=== PATIENT | male | born 1980 | race Caucasian/White ===

== ENCOUNTER 2019-10-09 21:02 | Emergency (ER) | payer MEDICAID, OTHER ==
--- NOTE | 2019-10-09 21:29 | EDM.PDOC ---
ED HPI GENERAL MEDICAL PROBLEM - General Chief Complaint: Lower Extremity Injury/Pain Stated Complaint: RT BIG TOE POSSIBLY BROKEN Time Seen by Provider: 10/09/19 21:15 Source of Information: Reports: Patient History Limitations: Reports: No Limitations - History of Present Illness INITIAL COMMENTS - FREE TEXT/NARRATIVE: 39 yo male stumbled going down some stairs and his R great toe was in full flexion and got forced into hyperflexion. Has some limited bleeding before arrival and some pain. Onset: Today Onset Date: 10/09/19 Onset Time: 20:40 Duration: Minutes: Location: Reports: Lower Extremity, Right Quality: Reports: Dull Severity: Mild Improves with: Reports: Rest Worsens with: Reports: Movement Context: Reports: Trauma Associated Symptoms: Reports: No Other Symptoms Treatments TERMITE TREATER: Reports: Other (see below) (none) right toe Pain Score (Numeric/FACES): 6 - Related Data Allergies Allergy/AdvReac Type Severity Reaction Status Date / Time No Known Allergies Allergy Verified 10/09/19 21:17 Home Meds: Home Meds Vortioxetine Hydrobromide [Trintellix] 20 mg PO DAILY 10/09/19 [History] Past Medical History HEENT History: Reports: Impaired Vision Musculoskeletal History: Reports: Fracture Psychiatric History: Reports: Anxiety, Depression - Past Surgical History Musculoskeletal Surgical History: Reports: Other (See Below) Other Musculoskeletal Surgeries/Procedures:: neck fracture Social & Family History - Tobacco Use Smoking Status *Q: Current Every Day Smoker Years of Tobacco use: 5 Packs/Tins Daily: 1 - Alcohol Use Days Per Week of Alcohol Use: 1 Number of Drinks Per Day: 3 Total Drinks Per Week: 3 - Recreational Drug Use Recreational Drug Use: Yes Recreational Drug Type: Reports: Marijuana/Hashish Recreational Drug Use Frequency: Weekly Review of Systems - Review of Systems Review Of Systems: See Below Constitutional: Reports: No Symptoms Musculoskeletal: Reports: Joint Pain (IP joint of R great toe.) Skin: Reports: Wound (moderate initial bleeding from beneath his nail. ) Neurological: Reports: No Symptoms ED EXAM, GENERAL - Physical Exam Exam: See Below Exam Limited By: No Limitations General Appearance: Alert, WD/WN, No Apparent Distress Extremities: Limited Range of Motion (weak extension.). No: Increased Warmth, Redness Neurological: Alert, Oriented, CN II-XII Intact, Normal Cognition, No Motor/ Sensory Deficits Skin Exam: Warm, Dry, Normal Color, No Rash, Wound/Incision (small wound adjacent to toenail with dried blood present. ) Course - Vital Signs Text/Narrative:: Posterior Orthoglass short leg splint applied, 28 inches of 4 inch width. Secured with 4 inch GARRETT x 2. Last Recorded V/S: Last Vital Signs Temp 36.9 C 10/09/19 21:18 Pulse 99 10/09/19 21:18 Resp 17 10/09/19 21:18 BP 144/84 H 10/09/19 21:18 Pulse Ox 90 L 10/09/19 21:18 - Orders/Labs/Meds Meds: Medications Discontinued Medications Generic Name Dose Route Start Last Admin Trade Name Freq PRN Reason Stop Dose Admin Bacitracin 1 dose 10/09/19 21:52 10/09/19 21:55 Bacitracin Oint 1 Gm TOP 10/09/19 21:53 1 dose ONETIME ONE Administration Cephalexin 1,000 mg 10/09/19 21:51 10/09/19 21:55 Keflex PO 10/09/19 21:52 1,000 mg ONETIME ONE Administration - Radiology Interpretation Free Text/Narrative:: R great toe X-ray- IMPRESSION: acute, oblique, moderately angulated, intra-articular fracture of the dorsal aspect of the base of the 1st distal phalanx, seen only on the lateral view. Dictated by Renaldo Clark MD @ Oct 09 2019 9:36PM Departure - Departure Time of Disposition: 22:20 Disposition: Home, Self-Care 01 Condition: Fair Clinical Impression: Fracture of phalanx of foot Fracture of right great toe Qualifiers: Encounter type: initial encounter Fracture type: open Phalanx: unspecified phalanx Fracture alignment: displaced Qualified Code(s): S92.401B - Displaced unspecified fracture of right great toe, initial encounter for open fracture - Discharge Information *PRESCRIPTION DRUG MONITORING PROGRAM REVIEWED*: No *COPY OF PRESCRIPTION DRUG MONITORING REPORT IN PATIENT JAZMINE: No Instructions: Toe Fracture, [id number] Referrals: PCP,None [Primary Care Provider] - Forms: ED Department Discharge Additional Instructions: Crutch walking and no weight bearing. Elevate your foot above your heart as much as possible. F/U with your orthopedic doctor with your X-rays MAGEN. Keep foot clean. Take cephalexin as directed. Use ibuprofen and/or acetaminophen as needed for pain relief. Wear splint at all times. Sepsis Event Note - Evaluation Sepsis Screening Result: No Definite Risk - Focused Exam Vital Signs: Vital Signs Temp Pulse Resp BP Pulse Ox 10/09/19 21:18 36.9 C 99 17 144/84 H 90 L 10/09/19 21:14 36.9 C 99 17 144/84 H 90 L Date Exam was Performed: 10/09/19 Time Exam was Performed: 22:10
--- NOTE | 2019-10-09 21:41 | CRLCR ---
INDICATION: Pain after injury COMPARISON: None available. TECHNIQUE: The right great toe is examined with AP, lateral, and oblique views. There is an acute, oblique, intra-articular fracture of the dorsal aspect of the base of the 1st distal phalanx, with approximately 30 degrees volar angulation of the major distal fracture fragment, seen only on the lateral view. There is moderate soft tissue swelling overlying the fracture site. There is no sign of additional fracture or dislocation. The soft tissues elsewhere are normal in appearance without sign of additional swelling or radio-opaque foreign body. No significant degenerative disease is seen. IMPRESSION: acute, oblique, moderately angulated, intra-articular fracture of the dorsal aspect of the base of the 1st distal phalanx, seen only on the lateral view. Dictated by Renaldo Clark MD @ Oct 09 2019 9:36PM Signed by Dr. Renaldo Clark @ Oct 09 2019 9:39PM
[2019-10-09] MEDS ORDERED: Cephalexin 250 MG Cap PO ONE (21:51)
[2019-10-09] MEDS ORDERED: Bacitracin Oint 1 GM U/D Packet TOP ONE (21:52)
== END 2019-10-09 22:46 | disposition home or self-care (01) ==
LOC: JP.ED 21:02
DX: S92.421B Displaced fracture of distal phalanx of right great toe, initial encounter for open fracture (principal); F41.9 Anxiety disorder, unspecified; F32.9 Major depressive disorder, single episode, unspecified; F17.210 Nicotine dependence, cigarettes, uncomplicated; Z79.899 Other long term (current) drug therapy; W10.8XXA Fall (on) (from) other stairs and steps, initial encounter
CPT/HCPCS: 29515; 73660; 99283; A9270